=== PATIENT | male | born 1985 | race Caucasian/White ===

== ENCOUNTER → 2020-12-01 17:47 | Outpatient (BNVA) | payer OTHER, SELFPAY | PROVIDERS: Family Provider Nurse Practitioner; PCP Nurse Practitioner; Visit Provider Nurse Practitioner | DX: S99.911A Unspecified injury of right ankle, initial encounter (principal); W19.XXXA Unspecified fall, initial encounter; R60.0 Localized edema | CPT/HCPCS: 73610 ==